=== PATIENT | male | born 1940 | race Caucasian/White ===

== ENCOUNTER → 2016-12-03 | Day surgery (SDC) | payer OTHER ==
[~2016-12-03] VITALS: Ht 172.7 cm; Wt 88.9 kg
[~2016-12-03] MED LIST: ACETAMINOPHEN/HYDROcodone 325 MG/10 MG TAB PO PRN; BUPIVACAINE LIPOSOME PF 1.3% 20 ML VIAL INFIL ONE; CHLORHEXIDINE GLUCONATE 2 % 1 PACK (2 CLOTHS) TOPICAL PRN; DEXAMETHASONE SOD PHOS 4 MG/ML VIAL ONE; DO NOT ADM ANY ANTICOAGULANT DRUGS PRN; FAMOTIDINE 20 MG/2 ML VIAL ONE; GABA300C5 PO; GABA600T PO; GELFOAM SIZE 100 ONE; GENTAMICIN SULFATE 80 MG/2 ML VIAL ONE; HYDR-3366 PO; HYDR-3583; HYDR2TAB; HYDR2TAB PO; HYDROmorphone HCL 2 MG TAB PO PRN; IBUP800T23; INSULIN HUMAN REGULAR 1,000 UNITS/10 ML VIAL SQ PRN; LACTATED RINGER'S 1000 ML INJ 1,000 ML IV SCH; LACTATED RINGER'S 1000 ML IV PRN; LATA0.002 EACH EYE; LIDOCAINE 2%/EPINEPHrine PF 1:200,000 20ML SDV ONE; LISI10TA3 PO; MEDR4PAK PO; METOPROLOL TARTRATE 25 MG TAB PO PRN; MIDAZOLAM HCL 2 MG/2 ML VIAL IV ONE; MORPHINE SULFATE 4 MG/ML INJ IV PRN; NORMOSOL R INJ 1,000 ML IV ONE; ONDANSETRON HCL 4 MG/2 ML VIAL IV PUSH ONE; POVIDONE IODINE 5% (ANTISEPSIS KIT) 4 APPLICATIONS EACH NARE PRN; PROPOFOL 200 MG/20 ML AMP IV ONE; SODIUM CHLORID 0.9% 500 ML IV PRN; THROMBIN (TOPICAL) 5,000 UNIT VIAL ONE; TIMO0.5S30 EACH EYE; ceFAZolin 1,000 MG/NS 100 ML IV SCH; ceFAZolin 2 GM/50 ML BAG IV ONE; ceFAZolin INJ 1,000 MG VIAL IV ONE; ePHEDrine/NS 25 MG/5 ML SYR IV ONE; methylPREDNISolone ACETATE 40 MG/ML VIAL ONE
[2016-12-03 07:28] LABS: APTT (PATIENT) 26.6 SEC (24.3-30.1)
--- NOTE | 2016-12-03 13:11 | PD.OP ---
Operative Report Date of Surgery: Dec 03, 2016 Preoperative Diagnosis: (1) Displacement of lumbar intervertebral disc (2) Chronic lumbar radiculopathy Postoperative Diagnosis: (1) Displacement of lumbar intervertebral disc (2) Chronic lumbar radiculopathy Procedure: Right L4 5 far lateral approach for foraminotomy, right L4 nerve exploration and decompression, lysis of adhesions Anesthesia: General Surgeon: Murray Newton Sr. Manager Corporate Communications(s): Cristina Hilton Operation and Findings: Indications: 76-year-old male with previous resection lumbar synovial cyst approximately 2 years ago. Now approximately 9 months of progressive right L4 distribution pain. Preoperative MRI with soft tissue density lesion in the right L4 5 extraforaminal region consistent with herniated nucleus pulposus. Procedure in detail: The patient was brought into the operating room and general endotracheal anesthesia induced without difficulty. Knee-high sequential compression devices were placed. Lines were established by Anesthesia The patient was placed in prone position on the concentric Obed table with the side bolsters and all extremities appropriately padded Appropriate timeout procedure was performed with all personal present and in agreement The lumbar region was shaved with clippers and sterilely prepped and draped. 1% Xylocaine with epinephrine was used for local infiltration over the incision site which was made approximately 8 cm lateral to the midline at the right L4 5 level and carried sharply down to the lumbodorsal fascia which was incised longitudinally. The intermuscular plane was with finger dissection until the right L4 and L5 transverse processes and right L4 5 facet was palpated. The paraspinous musculature and fascia was elevated away from the structures. The deep self-retaining retractor was placed. The appropriate level was verified with intraoperative C-arm. The microscope was moved into place and used for the remainder of the procedure including the closure. The TPS drill with the 5 mm bone bur was used to remove a small amount of the lateral right L4-L5 facet. A probe was placed and the location of the probe at the mid superior right L5 pedicle at the lower aspect of the right L4 5 annulus in the inferior neural foramen was verified with AP and lateral C-arm imaging. Starting at the junction of the right superior L5 pedicle and L5 vertebral body junction, the peroneal adipose tissue and vascular structures were swept cephalad revealing the right L4 5 annulus at the foraminal and extraforaminal location. A moderate annular tear was seen. The inferior aspect of the exiting right L4 nerve root was visualized and there appeared to be a small chronic tear in the inferior nerve root sleeve with possibly some nerve fibers with scar tissue exposed in this region. In order to better visualize the region and decompress the nerve, an additional foraminotomy was performed with the 3 and 4 mm Kerrison rongeur, removing the inferior facet surrounding the foramen. The epidural adipose tissue was visualized and clearly from the lateral thecal sac which was traced up to the takeoff of the right L4 nerve root at the foramen. The nerve root was then traced laterally as it crossed over the lateral extraforaminal right L4 5 annulus. In this region there was extensive adhesions and scar tissue around the nerve root which were taken down with the microdissectors and microscissors. The intertransverse process ligament was totally taken down between the right L4 and L5 transverse process and all structures dorsal to the nerve root were freed up to further allow mobilization of the nerve root. The nerve root appeared to be very firm with some enlargement of the nerve root and ganglion in this region. No obvious neoplasm was encountered, however there was suspicion of a neuroma formation in this region. A very careful check was made for any large fragments of herniated disc material. The neural structures appeared well decompressed at the end of the procedure. Bleeding was carefully controlled with bone wax for the bone bleeding and bipolar forceps. There is no significant bleeding time of closure. No cerebrospinal fluid leakage was encountered. The closure was performed with 0 Vicryl interrupted for the deep and superficial fascia, with 3-0 Vicryl interrupted for the subcutaneous closure, and 4-0 Vicryl running for the subcuticular closure. The dressing of sterile Mastisol, Steri-Strips, and Primapore dressing was applied. The patient was taken to recovery room in stable condition. All counts were correct at the end of the case. No specimen was sent to pathology. Estimated blood loss was 50 cc . Murray Newton MD Dec 03, 2016 13:11
--- NOTE | 2016-12-03 14:14 | RADRPT ---
EXAM DATE/TIME: 12/03/2016 09:09 [facility] COMPARISON: No previous studies available for comparison. INDICATIONS : Lumbar laminectomy L4-5. OR. MEDICAL HISTORY : None. SURGICAL HISTORY : None. ENCOUNTER: Initial ACUITY: 1 day PAIN SCORE: Non-responsive. LOCATION: Lumbar L4-5 FINDINGS: A single lateral view of the lumbar spine was performed. There is normal alignment of the vertebral bodies without evidence of subluxation. Vertebral body height and disc space height is maintained. T he L4-5 level is located CONCLUSION: The L4-5 level is localized. Malcolm Ashby MD on December 03, 2016 at 14:12 Board Certified Radiologist. This report was verified electronically.
[2016-12-03 14:50] VITALS: BP 147/87; PULSE 71; RESP 16; TEMP 97.2; O2SAT 99
== END | disposition home or self-care (01) ==
LOC: HSDC 06:15
PROVIDERS: ATTEND Neurological Surgery
DX: M51.16 Intervertebral disc disorders with radiculopathy, lumbar region (principal); I10 Essential (primary) hypertension; G47.30 Sleep apnea, unspecified; H40.9 Unspecified glaucoma; F10.10 Alcohol abuse, uncomplicated; Z87.891 Personal history of nicotine dependence; Z86.19 Personal history of other infectious and parasitic diseases; Z85.46 Personal history of malignant neoplasm of prostate; Z79.899 Other long term (current) drug therapy
CPT/HCPCS: 00670; 63030; 72020; 76000; 85730; C9290; J0690; J1030; J1100; J1580; J2250; J2405; J3010; J7120